=== PATIENT | male | born 1985 | race Hispanic/Latino ===

== ENCOUNTER 2018-12-16 18:40 | Emergency (ER) | payer OTHER ==
[2018-12-16] MEDS ORDERED: SODIUM CHLORIDE 0.9% 1000ML 1,000 ML IV ONE (19:50)
== END 2018-12-16 22:27 | disposition home or self-care (01) ==
LOC: EDH 18:40
DX: G40.89 Other seizures (principal); F19.129 Other psychoactive substance abuse with intoxication, unspecified; F14.10 Cocaine abuse, uncomplicated; Z72.0 Tobacco use
CPT/HCPCS: 70450; 82948 ×2; 93005; 99285; J7030